=== PATIENT | male | born 1955 | race Native Hawaiian/Other Pacific Islander ===

== ENCOUNTER 2019-01-06 21:48 | Emergency (ER) | payer BC ==
[~2019-01-06] VITALS: Ht 167.6 cm; Wt 72.6 kg
[2019-01-06 22:52] VITALS: BP 129/77; TEMP 98.5
== END 2019-01-06 22:53 | disposition home or self-care (01) ==
LOC: ED 21:48
DX: M54.5 Low back pain (principal); X50.0XXA Overexertion from strenuous movement or load, initial encounter
CPT/HCPCS: 99282